=== PATIENT | male | born 1950 | race Caucasian/White ===

== ENCOUNTER 2022-05-09 17:41 | Emergency (ER) | payer BC, OTHER ==
[~2022-05-09] VITALS: Ht 177.8 cm; Wt 98.9 kg
== END 2022-05-09 18:49 | disposition home or self-care (01) ==
LOC: ED 17:41
DX: S61.216A Laceration without foreign body of right little finger without damage to nail, initial encounter (principal); W23.0XXA Caught, crushed, jammed, or pinched between moving objects, initial encounter
CPT/HCPCS: 12001; 73140; 99283-25